=== PATIENT | female | born 1940 | race Caucasian/White ===

== ENCOUNTER 2021-01-11 08:00 | Outpatient (RCR) | payer MEDICARE, SELFPAY | END 2021-02-15 09:40 | disposition home or self-care (01) | LOC: HO.OT 08:00 | PROVIDERS: PCP Family Medicine; Visit Provider Family Medicine | DX: I89.0 Lymphedema, not elsewhere classified (principal) | CPT/HCPCS: 97110; 97140 ==

== ENCOUNTER 2023-12-29 05:42 | Outpatient (REF) | payer MEDICARE, SELFPAY | END 2023-12-29 05:43 | disposition home or self-care (01) | LOC: HO.MMNH2L 05:42 | PROVIDERS: Visit Provider Family Medicine | DX: Z13.89 Encounter for screening for other disorder (principal) | CPT/HCPCS: 36415; 80053; 82248; 85025 ==